=== PATIENT | female | born 1945 | race Hispanic/Latino ===

== ENCOUNTER 2021-01-11 17:50 | Emergency (ER) | payer MEDICARE ==
[2021-01-11] MEDS ORDERED: SODIUM CHLORIDE 0.9% 1000ML 1,000 ML IV STA (18:19)
[2021-01-11] MEDS ORDERED: ONDANSETRON HCL INJ 2MG/ML 2ML 2 MG/ML VIAL IV ONE (18:30)
[2021-01-11] MEDS ORDERED: ACETAMINOPHEN 325 MG TAB PO ONE (18:30)
[2021-01-11] MEDS ORDERED: KETOROLAC TROMETHAMINE 30 MG/ML VIAL IV ONE (18:30)
[2021-01-11] MEDS ORDERED: ONDANSETRON HCL INJ 2MG/ML 2ML 2 MG/ML VIAL ONE (19:24)
[2021-01-11] MEDS ORDERED: KETOROLAC TROMETHAMINE 30 MG/ML VIAL ONE (19:24)
[2021-01-11] MEDS ORDERED: ACETAMINOPHEN 325 MG TAB ONE (19:25)
[2021-01-11] MEDS ORDERED: SODIUM CHLORIDE 0.9% 1000ML 1,000 ML ONE (19:25)
[2021-01-11] MEDS ORDERED: ACETAMINOPHEN500 MG PO (19:29)
[2021-01-11] MEDS ORDERED: IBUPROFEN IB200 MG PO (19:29)
[2021-01-11] MEDS ORDERED: CEFDINIR300 MG PO (19:29)
[2021-01-11] MEDS ORDERED: CEFTRIAXONE 1 GM VIAL IV ONE (19:30)
[2021-01-11] MEDS ORDERED: CEFTRIAXONE 1 GM in SODIUM CHLORIDE 0.9% 50ML 50 ML IV ONE (19:30)
[2021-01-11] MEDS ORDERED: SODIUM CHLORIDE 0.9% 50ML 50 ML ONE (19:39)
[2021-01-11] MEDS ORDERED: CEFTRIAXONE 1 GM VIAL ONE (19:39)
[2021-01-11 20:31] VITALS: BP 150/76
== END 2021-01-11 20:31 | disposition home or self-care (01) ==
LOC: FSED 18:05
DX: N39.0 Urinary tract infection, site not specified (principal); R51.9 Headache, unspecified
CPT/HCPCS: 70450; 80053; 81003; 85025; 87400; 99283; J0696; J1885; J2405; J7030; U0002